=== PATIENT | female | born 1960 | race Two or more races ===

== ENCOUNTER 2025-09-21 10:34 | Inpatient (IN) | payer OTHER ==
[~2025-09-21] VITALS: Ht 152.4 cm; Wt 113.6 kg
--- NOTE | 2025-09-21 10:48 | ED.PDOC ---
HPI Comments This is a 64 year old female BOBBY presenting to the ED with chief complaint of chest pain. Patient reports that after experiencing an emotional stressor this morning about 6 hours ago, she had started to experience chest pressure with associated nausea. EMS relays patient was in A-Fib on scene, being given 500mL of fluids lowered her HR down to the 110s, but patient is still in A-Fib. Patient denies any SOB, dizziness, headache, syncope, vomiting, or abdominal pain. Time Seen by MD: 10:46 Primary Care Provider: NICOLE Conte Notes: Nurses Notes, Dock Attendant Notes, Medications, Allergies Allergies: Coded Allergies: NO KNOWN ALLERGIES (Unverified , 12/23/11) Information Source: Patient, Emergency Med Personnel Mode of Arrival: EMS Severity: Moderate Timing: Hours Duration: Since onset Prehospital treatment: IVF Quality: Pressure Onset: With Light Exertion Cardiac Risk Factors: HTN, Diabetes Past Medical History PAST MEDICAL HISTORY: AFIB, DM, HTN Surgical History: BKA (Rt) RN PEDIATRIC ICU History: Denies all RN PEDIATRIC ICU Hx Family History Family History: No family hx of DM Social History Smoker: Non-Smoker Alcohol: Denies ETOH Use Drugs: Denies Drug Use Lives In: Home Constitutional: denies: chills, diaphoresis, fatigue, fever, malaise, sweats, weakness, others EENTM: denies: blurred vision, double vision, ear bleeding, ear discharge, ear drainage, ear pain, ear ringing, eye pain, eye redness, hearing loss, mouth pain, mouth swelling, nasal discharge, nose bleeding, nose congestion, nose pain, photophobia, tearing, throat pain, throat swelling, voice changes, others Respiratory: denies: cough, hemoptysis, orthopnea, SOB at rest, shortness of breath, SOB with excertion, stridor, wheezing, others Cardiovascular: reports: chest pain; denies: dizzy spells, diaphoresis, Dyspnea on exertion, edema, irregular heart beat, left arm pain, lightheadedness, palpitations, PND, syncope, others Gastrointestinal: reports: nausea; denies: abdomen distended, abdominal pain, blood streaked bowels, constipated, diarrhea, dysphagia, difficulty swallowing, hematemesis, melena, poor appetite, poor fluid intake, rectal bleeding, rectal pain, vomiting, others Genitourinary: denies: abnormal vagina bleeding, burning, dyspareunia, dysuria, flank pain, frequency, hematuria, incontinence, pain, , vagina discharge, urgency, others Neurological: denies: dizziness, fainting, headache, left sided numbness, left sided weakness, numbness, paresthesia, pre-existing deficit, right sided numbness, right sided weakness, seizure, speech problems, tingling, tremors, weakness, others Musculoskeletal: denies: back pain, gout, joint pain, joint swelling, muscle pain, muscle stiffness, neck pain, others Integumetry: denies: bruises, change in color, change in hair/nails, dryness, laceration, lesions, lumps, rash, wounds, others Allergic/Immunocompromised: denies: Difficulty Healing, Frequent Infections, Hives, Itching, others Hematologic/Lymphatic: denies: anemia, blood clots, easy bleeding, easy bruising, swollen glands, others Endocrine: denies: excessive hunger, excessive sweating, excessive thirst, excessive urination, flushing, intolerance to cold, intolerance to heat, unexplained weight gain, unexplained weight loss, others Psychiatric: denies: anxiety, bipolar disorder, depression, hopeless, panic disorder, schizophrenia, sleepless, suicidal, others All Other Systems: Reviewed and Negative Physical Exam General Appearance: Moderate Distress, Obese HEENT: Normal ENT Inspection, Pharynx Normal, TMs Normal Neck: Full Range of Motion, Non-Tender, Normal, Normal Inspection Respiratory: Chest Non-Tender, Lungs Clear, No Accessory Muscle Use, No Respiratory Distress, Normal Breath Sounds Cardiovascular: Irregular, No Edema, No JVD, No Murmur, No Gallop, Normal Peripheral Pulses Breast Exam: Deferred Gastrointestinal: No Organomegaly, Non Tender, No Pulsatile Mass, Normal Bowel Sounds, Soft Genitalia: Deferred Pelvic: Deferred Rectal: Deferred Extremities: No calf tenderness, Normal capillary refill, Normal range of motion, Non-tender, No pedal edema, Other (Old right below-knee amputation.) Musculoskeletal : Apperance: Normal Neurologic: Alert, integration manager II-XII nml as Tested, No Motor Deficits, Normal Affect, Normal Mood, No Sensory Deficits Cerebellar Function: NOT DONE Reflexes: NOT DONE Skin: Dry, Normal Color, Warm Peripheral Pulses: 3+ Radial (R), 3+ Radial (L) Lymphatic: No Adenopathy EKG EKG : Pulse Rate (adult): 108 Cardiac Rhythm: Afib Was a procedure done? Was a procedure done?: No CP Differential Dx Differential Diagnosis: A-fib, A-Flutter, Angina, Anxiety / Panic Attack, Atrial Dysrhythmia, Electrolyte Disorder X-Ray, Labs, Meds, VS Vital Signs Date Time Temp Pulse Resp B/P (MAP) Pulse Ox O2 Delivery O2 Flow Rate FiO2 09/21/25 12:35 80 17 162/91 (114) 99 09/21/25 12:25 95 17 177/104 (128) 98 09/21/25 11:59 174/106 09/21/25 11:35 108 09/21/25 11:00 Room Air* 0 21 09/21/25 10:48 97.8 109 15 174/106 (128) 97.8 09/21/25 10:48 108 09/21/25 10:34 108 09/21/25 10:34 97.8 109 24 145/63 95 97.8 Lab Test 09/21/25 12:31 09/21/25 11:27 Range/Units Troponin I High Sensitivity Pending 14 </=34 ng/L White Blood Count 8.0 4.4-10.8 10^3/uL Red Blood Count 5.56 H 4.0-5.20 10^6/uL Hemoglobin 17.1 H 12.2-16.2 g/dL Hematocrit 50.7 H 36.0-46.0 % Mean Corpuscular Volume 91.1 80.0-100.0 fL Mean Corpuscular Hemoglobin 30.7 28.0-32.0 pg Mean Corpuscular Hemoglobin Concent 33.7 32.0-36.0 g/dL Red Cell Distribution Width 14.4 H 11.8-14.3 % Platelet Count 176 140-450 10^3/uL Mean Platelet Volume 8.6 6.9-10.8 fL Neutrophils (%) (Auto) 62.9 37.0-80.0 % Lymphocytes (%) (Auto) 28.2 10.0-50.0 % Monocytes (%) (Auto) 6.7 0.0-12.0 % Eosinophils (%) (Auto) 1.3 0.0-7.0 % Basophils (%) (Auto) 0.9 0.0-2.0 % Neutrophils # (Auto) 5.0 1.6-8.6 10 ^3/uL Lymphocytes # (Auto) 2.3 0.4-5.4 10 ^3/uL Monocytes # (Auto) 0.5 0-1.3 10 ^3/uL Eosinophils # (Auto) 0.1 0-0.8 10 ^3/uL Basophils # (Auto) 0.1 0-0.2 10 ^3/uL Nucleated Red Blood Cells 0.1 % Sodium Level 144 136-145 mmol/L Potassium Level 3.6 3.5-5.1 mmol/L Chloride Level 108 H 98-107 mmol/L Carbon Dioxide Level 23 20-31 mmol/L Anion Gap 13 5-15 Blood Urea Nitrogen 10 9-23 mg/dL Creatinine 0.75 0.550-1.02 mg/dL Glomerular Filtration Rate Calc 88 >90 mL/min BUN/Creatinine Ratio 13.3 10.0-20.0 Serum Glucose 180 H 74-106 mg/dL Calcium Level 9.1 8.7-10.4 mg/dL Current Medications Medications (Trade) Dose Ordered Sig/[place] Route Start Time Stop Time Status Last Admin Amiodarone HCl 100 ml @ 600 mls/hr ONCE ONCE IV 09/21/25 11:15 09/21/25 11:48 DC 09/21/25 11:59 Amiodarone HCl 250 ml @ 33.33 mls/ hr Q7H31M ONCE IV 09/21/25 11:30 09/21/25 19:00 09/21/25 12:20 Aspirin 325 mg ONCE ONCE PO 09/21/25 11:15 09/21/25 11:48 DC 09/21/25 11:57 Patient alert. Vitals stable. Atrial fibrillation. Blood pressure elevated. Complaining of chest pain. Was given aspirin. Saturation pristine on room air. Was given clonidine. Started amiodarone. Unstable for transfer. Explained to the patient. Continue monitoring. [place] approved inpatient admission [id number]. Time of 1ST Reevaluation: 11:45 Reevaluation 1ST: Unchanged Patient Education/Counseling: Diagnosis, Treatment Family Education/Counseling: No Family Present SEPSIS Sepsis Screen Physician Orders Electrocardigram (09/21/25 10:35) Electrocardigram (09/21/25 11:35) Electrocardigram (09/21/25 13:35) Chest Portable (09/21/25 11:13) Urinalysis (09/21/25 11:13) Amiodarone 450mg/250ml Ae (Cordarone) (09/21/25 11:30) Troponin-I Hs (09/21/25 11:34) Vital Signs Date Time Temp Pulse Resp B/P (MAP) Pulse Ox O2 Delivery O2 Flow Rate FiO2 09/21/25 12:35 80 17 162/91 (114) 99 09/21/25 12:25 95 17 177/104 (128) 98 09/21/25 11:59 174/106 09/21/25 11:35 108 09/21/25 11:00 Room Air* 0 21 09/21/25 10:48 97.8 109 15 174/106 (128) 97.8 09/21/25 10:48 108 09/21/25 10:34 108 09/21/25 10:34 97.8 109 24 145/63 95 97.8 Laboratory Tests Test 09/21/25 11:27 White Blood Count 8.0 10^3/uL (4.4-10.8) Medications Medications Dose Ordered Sig/Kanchan Route Start Time Stop Time Status Last Admin Dose Admin Amiodarone HCl 100 ml @ 600 mls/hr ONCE ONCE IV 09/21/25 11:15 09/21/25 11:48 DC 09/21/25 11:59 Amiodarone HCl 250 ml @ 33.33 mls/ hr Q7H31M ONCE IV 09/21/25 11:30 09/21/25 19:00 09/21/25 12:20 Aspirin 325 mg ONCE ONCE PO 09/21/25 11:15 09/21/25 11:48 DC 09/21/25 11:57 Departure 1 Departure Time of Disposition: 11:39 Impression: Primary Impression: Chest pain of unknown etiology Additional Impressions: Hypertensive urgency Atrial fibrillation Qualified Codes: I48.0 - Paroxysmal atrial fibrillation Disposition: ADMITTED INPATIENT Admit to: Med Surg Condition: Guarded Critical Care Note Critical Care Time?: Yes (90 min-critical care time only) Stability Stability form required: No Heart Score Heart Score: Heart Score Response (Comments) Value History Highly Suspicious 2 EKG Repolarization Disturb 1 Age >65 2 Risk Factors >3 or Hx ASHD 2 Troponin Normal limit 0 Total 7 I personally scribed for CAT TRAMMELL MD ([email or web address]) on 09/21/25 at 10:48. Electronically submitted by Taiwo Segura ([email or web address]). CAT TRAMMELL MD Sep 21, 2025 10:48
[2025-09-21 11:36] LABS: Hematocrit 50.7 % (36.0-46.0); Hemoglobin 17.1 g/dL (12.2-16.2); Mean Corpuscular Hemoglobin 30.7 pg (28.0-32.0); Mean Corpuscular Volume 91.1 fL (80.0-100.0); Nucleated Red Blood Cells % 0.1 %
[2025-09-21 11:55] LABS: Potassium 3.6 mmol/L (3.5-5.1); Sodium 144 mmol/L (136-145)
[2025-09-21 11:56] LABS: Anion Gap 13 (5-15); Carbon Dioxide 23 mmol/L (20-31)
[2025-09-21 11:57] LABS: Calcium 9.1 mg/dL (8.7-10.4); Chloride 108 mmol/L (98-107)
--- NOTE | 2025-09-21 11:57 | DVH ---
CHEST RADIOGRAPH Indication: sob Technique: Single frontal view of the chest was obtained Comparison: None FINDINGS: Lines and Tubes: None Lungs: No focal consolidation. Pleura: No effusion. No pneumothorax. Cardiomediastinal contours: Unremarkable Bones: No acute osseous abnormality. IMPRESSION: 1. No acute cardiopulmonary disease.
[2025-09-21] MEDS: AMIODARONE BOLUS KIT 100 ML IV ONE (11:59)
[2025-09-21] MEDS: NITROGLYCERIN 0.4 MG SL TAB SL ONE (11:59)
[2025-09-21 12:01] LABS: BUN/Creatinine Ratio 13.3 (10.0-20.0); Blood Urea Nitrogen 10 mg/dL (9-23)
[2025-09-21 12:02] LABS: Glucose 180 mg/dL (74-106)
[2025-09-21 14:00] VITALS: PULSE 121; RESP 12
[2025-09-21 14:11] LABS: Urine Protein, UAD Negative (Negative)
[2025-09-21] MEDS ORDERED: ATOR40TA52 PO (14:38)
[2025-09-21] MEDS ORDERED: MORPHINE SULFATE INJ 2 MG/ml SYRG IV PRN (14:45)
[2025-09-21] MEDS ORDERED: NITROGLYCERIN 0.4 MG SL TAB SL PRN ×2 (14:45)
[2025-09-21] MEDS ORDERED: DEXTROSE (50%) 50ML SYRG IV PRN (14:45)
[2025-09-21] MEDS ORDERED: MORPHINE SULFATE 4 MG/ML SYR/VIAL IV PRN (14:45)
[2025-09-21] MEDS ORDERED: ONDANSETRON HCL 4 MG/2 ML VIAL IV PRN (14:45)
--- NOTE | 2025-09-21 14:57 | DVHHP2 ---
History of Present Illness Reason for Visit: Chest pain History of Present Illness Lea Ruiz is a 64-year-old female with past medical history of AFib on Eliquis, diabetes, hypertension, hyperlipidemia, hysterectomy, and right BKA who presents to the ED with chest pain after an incident with her has been started this morning. Patient also endorses nausea. Per EMS reports patient was in AFib on scene and given 500 cc fluid bolus. Patient reports that she and her has been arguing this morning, he had told her that he wanted to become an alcoholic, she reports that she has been crying all day. Patient also reports that she uses a wheelchair to get around. Patient reports that she had been given a prescription for Keflex for 10 day supply finished her last dose yesterday from [facility] for a right lower extremity open wound on her stump. Patient reports that she was supposed to go in for a follow up today for her open wound however missed her appointment due to the incident today. Upon examination patient reports that she does not have any chest pain but just has a heavy pressure on her chest that began this morning. Patient denies any recent trauma or injury, recent sick contacts, recent ingestion of spoiled food, recent travels, fever, chills, lightheadedness, weakness, dizziness, abdominal pain, nausea, vomiting, diarrhea, or urinary symptoms. Cardiovascular: AFIB, HTN, hyperipidemia Endocrine: Diabetes Past Surgical History: Hysterectomy, Other (Right BKA) Family History: None Smoke: No ALCOHOL: none Drugs: None Lives: with Family Domestic Violence: Neg Review of Systems Cardiovascular: Chest Pain Skin: Other (right stump open wound) Allergies: Coded Allergies: NO KNOWN ALLERGIES (Unverified , 12/23/11) Exam Vital Signs Vital Signs Date Time Temp Pulse Resp B/P (MAP) Pulse Ox O2 Delivery O2 Flow Rate FiO2 09/21/25 14:00 121 12 Room Air* 0 21 09/21/25 13:30 215/119 (151) 98 09/21/25 10:48 97.8 97.8 General Appearance: Alert, Oriented X3, Cooperative, No acute distress HEENT: Atraumatic, PERRLA, EOMI, Mucous membr. moist/pink Respiratory: Clear to auscultation, Normal air movement Cardiovascular: Normal S1, Normal S2, No murmurs Abdominal: Normal bowel sounds, Soft Extremities: No clubbing, No cyanosis, Other (Right BKA with open wound) Neuro: Normal speech, Normal tone, Sensation intact Psych/Mental Status: Mental status NL, Mood NL Labs/Xrays Labs Test 09/21/25 13:50 09/21/25 12:31 09/21/25 11:27 Range/Units Urine Color Colorless Yellow Urine Clarity Clear Clear Urine pH 6.5 5.0-9.0 Urine Specific [place] 1.008 1.001-1.035 Urine Protein Negative Negative Urine Ketones 1+ H Negative Urine Blood Negative Negative /uL Urine Nitrite Negative Negative Urine Bilirubin Negative Negative Urine Urobilinogen Normal Negative mg/dL Urine Leukocyte Esterase Negative Negative /uL Urine RBC <1 0 - 4 /hpf Urine Microscopic WBC < 1 0-5 /HPF Urine Squamous Epithelial Cells Few <5 /hpf Urine Bacteria None seen None Seen /hpf Urine Glucose Normal Normal mg/dL Troponin I High Sensitivity 18 </=34 ng/L White Blood Count 8.0 4.4-10.8 10^3/uL Red Blood Count 5.56 H 4.0-5.20 10^6/uL Hemoglobin 17.1 H 12.2-16.2 g/dL Hematocrit 50.7 H 36.0-46.0 % Mean Corpuscular Volume 91.1 80.0-100.0 fL Mean Corpuscular Hemoglobin 30.7 28.0-32.0 pg Mean Corpuscular Hemoglobin Concent 33.7 32.0-36.0 g/dL Red Cell Distribution Width 14.4 H 11.8-14.3 % Platelet Count 176 140-450 10^3/uL Mean Platelet Volume 8.6 6.9-10.8 fL Neutrophils (%) (Auto) 62.9 37.0-80.0 % Lymphocytes (%) (Auto) 28.2 10.0-50.0 % Monocytes (%) (Auto) 6.7 0.0-12.0 % Eosinophils (%) (Auto) 1.3 0.0-7.0 % Basophils (%) (Auto) 0.9 0.0-2.0 % Neutrophils # (Auto) 5.0 1.6-8.6 10 ^3/uL Lymphocytes # (Auto) 2.3 0.4-5.4 10 ^3/uL Monocytes # (Auto) 0.5 0-1.3 10 ^3/uL Eosinophils # (Auto) 0.1 0-0.8 10 ^3/uL Basophils # (Auto) 0.1 0-0.2 10 ^3/uL Nucleated Red Blood Cells 0.1 % Sodium Level 144 136-145 mmol/L Potassium Level 3.6 3.5-5.1 mmol/L Chloride Level 108 H 98-107 mmol/L Carbon Dioxide Level 23 20-31 mmol/L Anion Gap 13 5-15 Blood Urea Nitrogen 10 9-23 mg/dL Creatinine 0.75 0.550-1.02 mg/dL Glomerular Filtration Rate Calc 88 >90 mL/min BUN/Creatinine Ratio 13.3 10.0-20.0 Serum Glucose 180 H 74-106 mg/dL Calcium Level 9.1 8.7-10.4 mg/dL CHEST RADIOGRAPH Indication: sob Technique: Single frontal view of the chest was obtained Comparison: None FINDINGS: Lines and Tubes: None Lungs: No focal consolidation. Pleura: No effusion. No pneumothorax. Cardiomediastinal contours: Unremarkable Bones: No acute osseous abnormality. IMPRESSION: 1. No acute cardiopulmonary disease. SEPSIS Sepsis Screen Date sepsis recognized/suspect: Sep 21, 2025 Time Sepsis recognized/suspect: 1034 Recent Procedure: No On Antibiotic Therapy: No Respiratory Rate >20: No Heart Rate >90: Yes Temp<36 C (96.8 F) or >38.3 C: No SBP <90 or MAP <65 mmHG: No New Acute Mental Status Change: No Is the patient on CPAP, BIPAP,: No Physician Orders Electrocardigram (09/21/25 10:35) Electrocardigram (09/21/25 11:35) Electrocardigram (09/21/25 13:35) Chest Portable (09/21/25 11:13) Amiodarone 450mg/250ml Ae (Cordarone) (09/21/25 11:30) Vital Signs Date Time Temp Pulse Resp B/P (MAP) Pulse Ox O2 Delivery O2 Flow Rate FiO2 09/21/25 14:00 121 12 Room Air* 0 21 09/21/25 13:30 109 13 215/119 (151) 98 09/21/25 12:35 80 17 162/91 (114) 99 09/21/25 12:25 95 17 177/104 (128) 98 09/21/25 11:59 174/106 09/21/25 11:35 108 09/21/25 11:00 Room Air* 0 21 09/21/25 10:48 97.8 109 15 174/106 (128) 97.8 09/21/25 10:48 108 09/21/25 10:34 108 09/21/25 10:34 97.8 109 24 145/63 95 97.8 Laboratory Tests Test 09/21/25 11:27 White Blood Count 8.0 10^3/uL (4.4-10.8) Medications Medications Dose Ordered Sig/Kanchan Route Start Time Stop Time Status Last Admin Dose Admin Amiodarone HCl 100 ml @ 600 mls/hr ONCE ONCE IV 09/21/25 11:15 09/21/25 11:48 DC 09/21/25 11:59 600 MLS/HR Amiodarone HCl 250 ml @ 33.33 mls/ hr Q7H31M ONCE IV 09/21/25 11:30 09/21/25 19:00 09/21/25 12:20 33.33 MLS/HR Aspirin 325 mg ONCE ONCE PO 09/21/25 11:15 09/21/25 11:48 DC 09/21/25 11:57 325 MG Assessment/Plan Assessment/Plan Assessment Chest pain rule out ACS Hypertensive urgency AFib RVR Morbid obesity History of AFib on Eliquis History of diabetes history of hypertension History of hyperlipidemia History of right BKA History of hysterectomy Plan Admit to [facility] Antiemetics Pain management EKG UA Amio drip Aspirin + statin Chest x-ray noted Troponin negative x2 UDS Hemoglobin A1c ISS and Accu-Cheks TSH Free T4 Lipid panel Echo ordered BP management Diet Home medications reconciled DVT prophylaxis-therapeutic Lovenox PUD prophylaxis-not indicated history of GERD or GI bleed Discussed plan of care with patient and nurse Cardiology consult Counseled patient on lifestyle modifications, diet, and exercise [id number] Preventive counseling healthy eating habits, physical activity, and regular checkups Chads Vasc score 4 points Plan discussed with: Patient Date of Service: Sep 21, 2025 Billing Provider: RAMON HOWARD Common Visit Codes: 98369-[id number] INP/OBS CARE (HIGH) Secondary Visit Codes: 50037-[id number] COUNSELING IND RAMON HOWARD Sep 21, 2025 14:57
[2025-09-21] MEDS: ACCU-CHEK COMFORT CURVE STRIP VI SCH (17:30)
[2025-09-21] MEDS: InsuLIN REG 1unit/0.01ml Soln (100units/ml) SC SCH (17:42)
[2025-09-21 19:20] VITALS: PULSE 121; RESP 18
--- NOTE | 2025-09-21 20:21 | DVHSR ---
APPROVED REPORT EXAM: LIMITED Two-dimensional and M-mode echocardiogram with Doppler and color Doppler. Blood Pressure: 215/119 mmHg INDICATION Chest Pain RISK FACTORS Obesity: Height: 5' 6", Weight: 250 DIMENSIONS LVDd 4.5 (3.8-5.7cm) LA (2D) 4.4 (1.9-4.0cm) Aortic Root 3.5 (2.0-3.7cm) LVDs 3.4 (2.5-4.0cm) LA (MM) (1.9-4.0cm) Aortic Cusp Exc 1.5 (1.5-2.0cm) EF (%) 50.0 (55-70%) Rt. Atrium 4.0 (1.9-4.0cm) Asc. Aorta cm IVSd 1.5 (0.7-1.1cm) RV (D) (1.8-2.4cm) PWd 1.4 (0.7-1.1cm) Mitral Valve Mitral Mitral Stenosis E wave 1.40m/s MV Mean GR. mmHg A wave 0.40m/s MV Peak GR. mmHg E/A ratio 3.5 2D MVA cm2 Aortic Valve Aortic Valve Aortic Stenosis V1 0.80m/s AO Mean GR. 8mmHg V2 2.00m/s AO Peak GR. 16mmHg LVOT Diameter 2.2 (1.8-2.4cm) Doppler JYOTI 1.52cm2 AI P 1/2 Time 472.46ms Pulmonic Valve V2 0.70m/s Tricuspid Valve TR Velocity 3.70m/s RVSP 60mmHg Conclusion Technically good study. Atrial fibrillation. Concentric LVH with left atrial enlargement. Sigmoid septum. Mild aortic sclerosis. Mild thickening and calcification of the posterior mitral leaflet. The tricuspid and pulmonic or structurally normal. Left ventricular function is preserved at 60% with normal RV function. There is however mild inferior hypokinesis. Mild mitral insufficiency. Mild aortic insufficiency. No pericardial effusion masses or vegetations.
[2025-09-21] MEDS: CLINDAMYCIN 600MG IV 50 ML IV SCH (20:46)
[2025-09-21 21:52] LABS: Amphetamine Screen, Urine Neg (NEGATIVE); Barbiturate Scree,Urine Neg (NEGATIVE); Benzodiazephine Screen, Urine Neg (NEGATIVE); Cannabinoid Screen, Urine Pos (NEGATIVE); Cocaine Screen, Urine Neg (NEGATIVE); Opiate Scree,Urine Neg (NEGATIVE); Phencyclidine Screen, Urine Neg (NEGATIVE)
[2025-09-21] MEDS ORDERED: CLINDAMYCIN 300MG IV 50 ML IV SCH (22:00)
[2025-09-21] MEDS: CARVEDILOL 3.125 MG TAB PO SCH (22:11)
[2025-09-21] MEDS: ENOXAPARIN SOD 120 MG/0.8 ML SYRINGE SC SCH (22:12)
[2025-09-21] MEDS: ATORVASTATIN 20 MG TAB PO SCH (22:12)
[2025-09-21] MEDS: TEMAZEPAM 15 MG CAP PO ONE (23:10)
[2025-09-22] VITALS (53 sets, daily range): BP systolic 127–171; BP diastolic 53–97; PULSE 70–123; RESP 10–29; TEMP 97.8–98.3; O2SAT 94–99
[2025-09-22] MEDS ORDERED: APIX5TAB PO (05:51)
[2025-09-22] MEDS ORDERED: METF-370 PO (05:51)
[2025-09-22 06:12] LABS: Hematocrit 43.7 % (36.0-46.0); Hemoglobin 15.2 g/dL (12.2-16.2); Mean Corpuscular Hemoglobin 31.5 pg (28.0-32.0); Mean Corpuscular Volume 90.8 fL (80.0-100.0); Nucleated Red Blood Cells % 0.1 %
[2025-09-22 06:24] LABS: Anion Gap 10 (5-15); Carbon Dioxide 27 mmol/L (20-31); Chloride 106 mmol/L (98-107); Potassium 3.6 mmol/L (3.5-5.1); Sodium 143 mmol/L (136-145)
[2025-09-22 06:25] LABS: Calcium 9.2 mg/dL (8.7-10.4)
[2025-09-22 06:30] LABS: BUN/Creatinine Ratio 16.7 (10.0-20.0); Blood Urea Nitrogen 14 mg/dL (9-23); Magnesium 1.9 mg/dL (1.6-2.6)
[2025-09-22 06:32] LABS: Cholesterol 200 mg/dL (< 200)
[2025-09-22 06:34] LABS: Glucose 126 mg/dL (74-106); HDL Cholesterol 39 mg/dL (40-59); Triglycerides 166 mg/dL (< 150)
--- NOTE | 2025-09-22 10:59 | DVHINCON2 ---
Date Seen: Sep 22, 2025 Referring Physician LUCAS Vargas Reason for Consultation AFib with RVR History of Present Illness This is a 64-year-old female patient who presents to the emergency room with chief complaint of shortness of breath, palpitations, and chest tightness. Prior to symptoms, the patient reports that her called her and told her that he would rather be a drunk than to her. This upset the patient causing her to experience extreme shortness of breath, chest tightness, and palpitations. She reports that the chest tightness was precipitated by the conversation with her , her chest was tight in nature, left-sided and nonradiating. She reports that chest tightness was constant which prompted her to call EMS. Upon EMS arrival, the patient was found to be in atrial fibrillation with rapid ventricular response and was brought to the emergency room for further evaluation. Initial twelve lead electrocardiogram done in the emergency room reveals atrial fibrillation without any significant ST segment changes. Initial troponin level of 14ng/L this is flat trend thereafter. Significant past medical history includes atrial fibrillation (on Eliquis), failed direct current cardioversion in July 2024, history myocardial infarction, hypertension, dyslipidemia, type 2 diabetes mellitus, CVA x2 without residual deficit, and morbid obesity. The patient does not follow up with a arbitrator in the outpatient setting. Past Medical History Past medical history reviewed. No other significant than mentioned above. Past Surgical History Right [id number] amputation (2023) Total hysterectomy Family History: Patient reports no known family medical history. Family History Family history reviewed. Social History Denies the use of tobacco, alcohol or illicit drugs. Allergies: Coded Allergies: NO KNOWN ALLERGIES (Unverified , 12/23/11) Home Meds Reported Medications Apixaban Base (ELIQUIS) 5 Mg Tab, 1 TAB PO BID 09/22/25 Metformin Hydrochloride (Metformin Hcl) 500 Mg Tab, 1 TAB PO BID 09/22/25 Atorvastatin Calcium (ATORVASTATIN CALCIUM) 40 Mg Tab, 1 TAB PO DAILY 09/21/25 Home Meds Home medications reviewed. Current Medications Current Medications Medications (Trade) Dose Ordered Sig/[place] Route PRN Reason Start Time Stop Time Status Last Admin Atorvastatin Calcium (Lipitor) 40 mg HS PO 09/21/25 22:00 09/21/25 22:12 Diagnostic Test (Pha) (Accu-Chek Comfort Curve T) 1 strip ACHS 09/21/25 17:00 09/22/25 06:48 Insulin Human Regular (InsuLIN R) ACHS SC 09/21/25 17:00 09/22/25 06:48 Dextrose 50 ml UD PRN IV Blood Sugar LESS THAN 60 09/21/25 14:45 Aspirin 81 mg DAILY PO 09/22/25 10:00 09/22/25 10:48 Morphine Sulfate 2 mg Q30MP PRN IV FOR CHEST PAIN 09/21/25 14:45 Acetaminophen (Tylenol Tablet) 650 mg Q6HP PRN PO MILD PAIN (1-3 PAIN SCALE) 09/21/25 14:45 Nitroglycerin (Ntrostat Sublingual) 0.4 mg Q5MINP PRN SL FOR CHEST PAIN 09/21/25 14:45 Ondansetron HCl (Zofran) 4 mg Q4HP PRN IV NAUSEA / VOMITING 09/21/25 14:45 Nitroglycerin (Ntrostat Sublingual) 0.4 mg Q5MINP PRN SL FOR CHEST PAIN 09/21/25 14:45 09/21/25 15:00 DC Morphine Sulfate 2 mg Q30M PRN IV FOR CHEST PAIN 09/21/25 14:45 09/21/25 15:00 DC Enoxaparin Sodium (Lovenox) 110 mg Q12HR SC 09/21/25 22:00 09/22/25 10:48 Carvedilol (Coreg Tablet) 3.125 mg Q12HR PO 09/21/25 22:00 09/22/25 10:49 Clindamycin Phosphate 50 ml @ 50 mls/hr Q8HR IV 09/21/25 22:00 09/21/25 17:24 DC Clindamycin Phosphate 50 ml @ 50 mls/hr Q8HR IV 09/21/25 17:00 09/22/25 06:27 Review of Systems Constitutional: No symptom reported Ears, Nose, & Throat: No symptom reported Eyes: No symptom reported Neurological: No symptoms reported Pulmonary/Respiratory: Shortness of breath Cardiovascular: Palpitations, chest pain Gastrointestinal: No symptom reported Genitourinary: No symptom reported Musculoskeletal: No symptom reported Skin: No symptom reported Psychiatric: No symptom reported Endocrine: No symptom reported Hematologic/Lymphatic: No symptom reported Vital Signs Vital Signs Date Time Temp Pulse Resp B/P (MAP) Pulse Ox O2 Delivery O2 Flow Rate FiO2 09/22/25 10:49 91 154/79 09/22/25 08:00 17 94 Room Air* 0 21 09/22/25 05:05 97.8 97.8 Physical Exam General Appearance: Cooperative. Morbidly obese Pulmonary/Respiratory: Clear, bilateral breaths sounds. Cardiovascular/Chest: Irregularly irregular rate and rhythm Peripheral Pulses: 2+ Radial (R). 2+ Radial (L). Abdominal Exam: Normal bowel sounds. Lower extremities: Negative lower extremity edema Neuro/Mental Status: A/OX4, coherent. Thoughts/Psych: Normal thought pattern. Appropriate mood and affect. Good judgment and insight. Appearance: No acute distress. Skin Exam: Normal inspection. Normal color. Warm and dry. Right [id number] amputation noted Labs/Diagnostic Data Labs Test 09/22/25 06:25 09/22/25 05:47 09/21/25 17:12 09/21/25 13:50 Range/Units POC Glucose 140 H 70-106 mg/dl White Blood Count 6.9 4.4-10.8 10^3/uL Red Blood Count 4.81 4.0-5.20 10^6/uL Hemoglobin 15.2 12.2-16.2 g/dL Hematocrit 43.7 # 36.0-46.0 % Mean Corpuscular Volume 90.8 80.0-100.0 fL Mean Corpuscular Hemoglobin 31.5 28.0-32.0 pg Mean Corpuscular Hemoglobin Concent 34.7 32.0-36.0 g/dL Red Cell Distribution Width 14.2 11.8-14.3 % Platelet Count 168 140-450 10^3/uL Mean Platelet Volume 8.9 6.9-10.8 fL Neutrophils (%) (Auto) 45.4 37.0-80.0 % Lymphocytes (%) (Auto) 42.9 10.0-50.0 % Monocytes (%) (Auto) 8.1 0.0-12.0 % Eosinophils (%) (Auto) 2.8 0.0-7.0 % Basophils (%) (Auto) 0.8 0.0-2.0 % Neutrophils # (Auto) 3.1 1.6-8.6 10 ^3/uL Lymphocytes # (Auto) 2.9 0.4-5.4 10 ^3/uL Monocytes # (Auto) 0.6 0-1.3 10 ^3/uL Eosinophils # (Auto) 0.2 0-0.8 10 ^3/uL Basophils # (Auto) 0.1 0-0.2 10 ^3/uL Nucleated Red Blood Cells 0.1 % Sodium Level 143 136-145 mmol/L Potassium Level 3.6 3.5-5.1 mmol/L Chloride Level 106 98-107 mmol/L Carbon Dioxide Level 27 20-31 mmol/L Anion Gap 10 5-15 Blood Urea Nitrogen 14 9-23 mg/dL Creatinine 0.84 0.550-1.02 mg/dL Glomerular Filtration Rate Calc 77 >90 mL/min BUN/Creatinine Ratio 16.7 10.0-20.0 Serum Glucose 126 H 74-106 mg/dL Calcium Level 9.2 8.7-10.4 mg/dL Magnesium Level 1.9 1.6-2.6 mg/dL Troponin I High Sensitivity 20 </=34 ng/L Triglycerides Level 166 H < 150 mg/dL Cholesterol Level 200 H < 200 mg/dL LDL Cholesterol 136 H < 100 mg/dL HDL Cholesterol 39 L 40-59 mg/dL Lactic Acid Level 1.5 0.4-2.0 mmol/L C-Reactive Protein High Sensitivity 0.06 <1.0 mg/dL Urine Color Colorless Yellow Urine Clarity Clear Clear Urine pH 6.5 5.0-9.0 Urine Specific [place] 1.008 1.001-1.035 Urine Protein Negative Negative Urine Ketones 1+ H Negative Urine Blood Negative Negative /uL Urine Nitrite Negative Negative Urine Bilirubin Negative Negative Urine Urobilinogen Normal Negative mg/dL Urine Leukocyte Esterase Negative Negative /uL Urine RBC <1 0 - 4 /hpf Urine Microscopic WBC < 1 0-5 /HPF Urine Squamous Epithelial Cells Few <5 /hpf Urine Bacteria None seen None Seen /hpf Urine Glucose Normal Normal mg/dL Urine Opiates Screen Neg NEGATIVE Urine Fentanyl Screen Neg NEGATIVE Urine Barbiturates Screen Neg NEGATIVE Urine Phencyclidine Screen Neg NEGATIVE Urine Amphetamines Screen Neg NEGATIVE Urine Benzodiazepines Screen Neg NEGATIVE Urine Cocaine Screen Neg NEGATIVE Urine Cannabinoids Screen Pos NEGATIVE Test 09/21/25 12:31 09/21/25 11:27 Range/Units Thyroid Stimulating Hormone (TSH) 2.07 0.55-4.78 uIU/mL Free Thyroxine (T4) Calculated 1.22 0.89-1.76 ng/dL Hemoglobin A1c 7.1 H <5.7 % A1C Assessment Atrial fibrillation with rapid ventricular response (on Eliquis) History of failed direct current cardioversion Hypertension Dyslipidemia Type 2 diabetes mellitus History of CVA x2 Morbid obesity Plan/Recommendation We will continue with the following plan/recommendations (Dr. Muhammad): * Transthoracic echocardiogram reveals an EF of 60% with mild inferior hypokinesis per report * [id number] VASc score: 6 points, HAS-BLED score: 2 points * Therapeutic Lovenox while inpatient, transition to full dose DOAC (Eliquis) prior to discharge * Beta-teto for rate control * Avoid antiarrhythmic agent given atrial fibrillation likely persistent * Monitor and replete electrolytes as needed, keep potassium greater than four magnesium greater than two * Close cardiac surveillance Patient seen and examined at bedside with . Transthoracic echocardiogram reviewed by . Regional wall motion abnormality possibly related to underlying arrhythmia, we will recommend outpatient ischemic workup. At the time of assessment, the patient remains in atrial fibrillation with controlled rate. Atrial fibrillation likely longstanding persistent as patient mentions failed direct current cardioversion last year. Continue with medical management. There is no further inpatient cardiac workup indicated at this time. The patient has been educated to follow up with a arbitrator within the [facility] post discharge. The patient verbalized understanding. Thank you for allowing us to care for this patient. Please call with any questions or conc erns. Critical care time spent: 44 minutes This medical document was created using an electronic medical record system with voice recognition software and computerized dictation system. Although this document has been carefully reviewed, there might still be some phonetic and typographical errors. Occasional wrong-word or ``sound-alike substitutions may have occurred due to the inherent limitations of voice recognition software. These areas are purely typographical due to imperfections of the software programs and do not reflect any compromise in the patient's medical care. Please read the chart carefully and recognize, using context, where these substitutions have occurred. Plan discussed with: Patient NYHA Physical activity limitations: NA Date of Service: Sep 22, 2025 Billing Provider: JANIYA PHILIP Cardiology Common Codes: 29420-ACFCJDI INP/OBS CARE (High) Cardiology Consultation Codes: [id number] CONSULT <45MIN JANIYA PHILIP Sep 22, 2025 10:59
[2025-09-22] MEDS: CARVEDILOL 3.125 MG TAB PO ONE (13:15)
[2025-09-22] MEDS: ACETAMINOPHEN 325 MG TAB PO PRN (14:32)
--- NOTE | 2025-09-22 15:54 | DVHINCON2 ---
Date of service: Sep 22, 2025 History of Present Illness AFib with RVR History of Present Illness History of Present Illness This is a 64-year-old female patient who presents to the emergency room with chief complaint of shortness of breath, palpitations, and chest tightness. Prior to symptoms, the patient reports that her called her and told her that he would rather be a drunk than to her. This upset the patient causing her to experience extreme shortness of breath, chest tightness, and palpitations. She reports that the chest tightness was precipitated by the conversation with her , her chest was tight in nature, left-sided and nonradiating. She reports that chest tightness was constant which prompted her to call EMS. Upon EMS arrival, the patient was found to be in atrial fibrillation with rapid ventricular response and was brought to the emergency room for further evaluation. Initial twelve lead electrocardiogram done in the emergency room reveals atrial fibrillation without any significant ST segment changes. Initial troponin level of 14ng/L this is flat trend thereafter. Significant past medical history includes atrial fibrillation (on Eliquis), failed direct current cardioversion in July 2024, history myocardial infarction, hypertension, dyslipidemia, type 2 diabetes mellitus, CVA x2 without residual deficit, and morbid obesity. The patient does not follow up with a soil technician in the outpatient setting. Past Medical History Past Medical History Past medical history reviewed. No other significant than mentioned above. Past Surgical History Past Surgical History Right [id number] amputation (2023) Total hysterectomy Family & Social History Family History: Patient reports no known family medical history. Family History Family history reviewed. Social History Denies the use of tobacco, alcohol or illicit drugs. Allergies and Medications Allergies: Coded Allergies: NO KNOWN ALLERGIES (Unverified , 12/23/11) Home Meds Reported Medications Apixaban Base (ELIQUIS) 5 Mg Tab, 1 TAB PO BID 09/22/25 Metformin Hydrochloride (Metformin Hcl) 500 Mg Tab, 1 TAB PO BID 09/22/25 Atorvastatin Calcium (ATORVASTATIN CALCIUM) 40 Mg Tab, 1 TAB PO DAILY 09/21/25 Home Meds Home medications reviewed. Current Medications Current Medications Medications (Trade) Dose Ordered Sig/[place] Route PRN Reason Start Time Stop Time Status Last Admin Atorvastatin Calcium (Lipitor) 40 mg HS PO 09/21/25 22:00 09/21/25 22:12 Diagnostic Test (Pha) (Accu-Chek Comfort Curve T) 1 strip ACHS 09/21/25 17:00 09/22/25 06:48 Insulin Human Regular (InsuLIN R) ACHS SC 09/21/25 17:00 09/22/25 06:48 Dextrose 50 ml UD PRN IV Blood Sugar LESS THAN 60 09/21/25 14:45 Aspirin 81 mg DAILY PO 09/22/25 10:00 09/22/25 10:48 Morphine Sulfate 2 mg Q30MP PRN IV FOR CHEST PAIN 09/21/25 14:45 Acetaminophen (Tylenol Tablet) 650 mg Q6HP PRN PO MILD PAIN (1-3 PAIN SCALE) 09/21/25 14:45 Nitroglycerin (Ntrostat Sublingual) 0.4 mg Q5MINP PRN SL FOR CHEST PAIN 09/21/25 14:45 Ondansetron HCl (Zofran) 4 mg Q4HP PRN IV NAUSEA / VOMITING 09/21/25 14:45 Nitroglycerin (Ntrostat Sublingual) 0.4 mg Q5MINP PRN SL FOR CHEST PAIN 09/21/25 14:45 09/21/25 15:00 DC Morphine Sulfate 2 mg Q30M PRN IV FOR CHEST PAIN 09/21/25 14:45 09/21/25 15:00 DC Enoxaparin Sodium (Lovenox) 110 mg Q12HR SC 09/21/25 22:00 09/22/25 10:48 Carvedilol (Coreg Tablet) 3.125 mg Q12HR PO 09/21/25 22:00 09/22/25 10:49 Clindamycin Phosphate 50 ml @ 50 mls/hr Q8HR IV 09/21/25 22:00 09/21/25 17:24 DC Clindamycin Phosphate 50 ml @ 50 mls/hr Q8HR IV 09/21/25 17:00 09/22/25 06:27 Review of Systems Review of Systems Constitutional: No symptom reported Ears, Nose, & Throat: No symptom reported Eyes: No symptom reported Neurological: No symptoms reported Pulmonary/Respiratory: Shortness of breath Cardiovascular: Palpitations, chest pain Gastrointestinal: No symptom reported Genitourinary: No symptom reported Musculoskeletal: No symptom reported Skin: No symptom reported Psychiatric: No symptom reported Endocrine: No symptom reported Hematologic/Lymphatic: No symptom reported Exam Vital Signs Vital Signs Date Time Temp Pulse Resp B/P (MAP) Pulse Ox O2 Delivery O2 Flow Rate FiO2 09/22/25 10:49 91 154/79 09/22/25 08:00 17 94 Room Air* 0 21 09/22/25 05:05 97.8 97.8 Physical Exam General Appearance: Cooperative. Morbidly obese Pulmonary/Respiratory: Clear, bilateral breaths sounds. Cardiovascular/Chest: Irregularly irregular rate and rhythm Peripheral Pulses: 2+ Radial (R). 2+ Radial (L). Abdominal Exam: Normal bowel sounds. Lower extremities: Negative lower extremity edema Neuro/Mental Status: A/OX4, coherent. Thoughts/Psych: Normal thought pattern. Appropriate mood and affect. Good judgment and insight. Appearance: No acute distress. Skin Exam: Normal inspection. Normal color. Warm and dry. Right [id number]-[id number] amputation noted Labs/Diagnostic Data Labs/Diagnostic Data Labs Test 09/22/25 06:25 09/22/25 05:47 09/21/25 17:12 09/21/25 13:50 Range/Units POC Glucose 140 H 70-106 mg/dl White Blood Count 6.9 4.4-10.8 10^3/uL Red Blood Count 4.81 4.0-5.20 10^6/uL Hemoglobin 15.2 12.2-16.2 g/dL Hematocrit 43.7 # 36.0-46.0 % Mean Corpuscular Volume 90.8 80.0-100.0 fL Mean Corpuscular Hemoglobin 31.5 28.0-32.0 pg Mean Corpuscular Hemoglobin Concent 34.7 32.0-36.0 g/dL Red Cell Distribution Width 14.2 11.8-14.3 % Platelet Count 168 140-450 10^3/uL Mean Platelet Volume 8.9 6.9-10.8 fL Neutrophils (%) (Auto) 45.4 37.0-80.0 % Lymphocytes (%) (Auto) 42.9 10.0-50.0 % Monocytes (%) (Auto) 8.1 0.0-12.0 % Eosinophils (%) (Auto) 2.8 0.0-7.0 % Basophils (%) (Auto) 0.8 0.0-2.0 % Neutrophils # (Auto) 3.1 1.6-8.6 10 ^3/uL Lymphocytes # (Auto) 2.9 0.4-5.4 10 ^3/uL Monocytes # (Auto) 0.6 0-1.3 10 ^3/uL Eosinophils # (Auto) 0.2 0-0.8 10 ^3/uL Basophils # (Auto) 0.1 0-0.2 10 ^3/uL Nucleated Red Blood Cells 0.1 % Sodium Level 143 136-145 mmol/L Potassium Level 3.6 3.5-5.1 mmol/L Chloride Level 106 98-107 mmol/L Carbon Dioxide Level 27 20-31 mmol/L Anion Gap 10 5-15 Blood Urea Nitrogen 14 9-23 mg/dL Creatinine 0.84 0.550-1.02 mg/dL Glomerular Filtration Rate Calc 77 >90 mL/min BUN/Creatinine Ratio 16.7 10.0-20.0 Serum Glucose 126 H 74-106 mg/dL Calcium Level 9.2 8.7-10.4 mg/dL Magnesium Level 1.9 1.6-2.6 mg/dL Troponin I High Sensitivity 20 </=34 ng/L Triglycerides Level 166 H < 150 mg/dL Cholesterol Level 200 H < 200 mg/dL LDL Cholesterol 136 H < 100 mg/dL HDL Cholesterol 39 L 40-59 mg/dL Lactic Acid Level 1.5 0.4-2.0 mmol/L C-Reactive Protein High Sensitivity 0.06 <1.0 mg/dL Urine Color Colorless Yellow Urine Clarity Clear Clear Urine pH 6.5 5.0-9.[address] 1.008 1.001-1.035 Urine Protein Negative Negative Urine Ketones 1+ H Negative Urine Blood Negative Negative /uL Urine Nitrite Negative Negative Urine Bilirubin Negative Negative Urine Urobilinogen Normal Negative mg/dL Urine Leukocyte Esterase Negative Negative /uL Urine RBC <1 0 - 4 /hpf Urine Microscopic WBC < 1 0-5 /HPF Urine Squamous Epithelial Cells Few <5 /hpf Urine Bacteria None seen None Seen /hpf Urine Glucose Normal Normal mg/dL Urine Opiates Screen Neg NEGATIVE Urine Fentanyl Screen Neg NEGATIVE Urine Barbiturates Screen Neg NEGATIVE Urine Phencyclidine Screen Neg NEGATIVE Urine Amphetamines Screen Neg NEGATIVE Urine Benzodiazepines Screen Neg NEGATIVE Urine Cocaine Screen Neg NEGATIVE Urine Cannabinoids Screen Pos NEGATIVE Test 09/21/25 12:31 09/21/25 11:27 Range/Units Thyroid Stimulating Hormone (TSH) 2.07 0.55-4.78 uIU/mL Free Thyroxine (T4) Calculated 1.22 0.89-1.76 ng/dL Hemoglobin A1c 7.1 H <5.7 % A1C Assessment/Plan Assessment Atrial fibrillation with rapid ventricular response (on Eliquis) History of failed direct current cardioversion Hypertension Dyslipidemia Type 2 diabetes mellitus History of CVA x2 Morbid obesity Plan/Recommendation We will continue with the following plan/recommendations (Dr. Dowd): Family History: Patient reports no known family medical history. Allergies: Coded Allergies: NO KNOWN ALLERGIES (Unverified , 12/23/11) Home Meds Reported Medications Apixaban Base (ELIQUIS) 5 Mg Tab, 1 TAB PO BID 09/22/25 Metformin Hydrochloride (Metformin Hcl) 500 Mg Tab, 1 TAB PO BID 09/22/25 Atorvastatin Calcium (ATORVASTATIN CALCIUM) 40 Mg Tab, 1 TAB PO DAILY 09/21/25 Current Medications Current Medications Medications (Trade) Dose Ordered Sig/[place] Route PRN Reason Start Time Stop Time Status Last Admin Atorvastatin Calcium (Lipitor) 40 mg HS PO 09/21/25 22:00 09/21/25 22:12 Diagnostic Test (Pha) (Accu-Chek Comfort Curve T) 1 strip ACHS 09/21/25 17:00 09/22/25 11:35 Insulin Human Regular (InsuLIN R) ACHS SC 09/21/25 17:00 09/22/25 11:35 Aspirin 81 mg DAILY PO 09/22/25 10:00 09/22/25 10:48 Enoxaparin Sodium (Lovenox) 110 mg Q12HR SC 09/21/25 22:00 09/22/25 10:48 Carvedilol (Coreg Tablet) 3.125 mg Q12HR PO 09/21/25 22:00 09/22/25 13:09 DC 09/22/25 10:49 Clindamycin Phosphate 50 ml @ 50 mls/hr Q8HR IV 09/21/25 22:00 09/21/25 17:24 DC Clindamycin Phosphate 50 ml @ 50 mls/hr Q8HR IV 09/21/25 17:00 09/22/25 13:32 Carvedilol (Coreg Tablet) 6.25 mg Q12HR PO 09/22/25 22:00 Vital Signs Vital Signs Date Time Temp Pulse Resp B/P (MAP) Pulse Ox O2 Delivery O2 Flow Rate FiO2 09/22/25 13:15 77 139/71 09/22/25 08:00 17 94 Room Air* 0 21 09/22/25 05:05 97.8 97.8 Labs/Diagnostic Data Labs Test 09/22/25 11:06 09/22/25 05:47 09/21/25 17:12 09/21/25 13:50 Range/Units POC Glucose 220 H 70-106 mg/dl White Blood Count 6.9 4.4-10.8 10^3/uL Red Blood Count 4.81 4.0-5.20 10^6/uL Hemoglobin 15.2 12.2-16.2 g/dL Hematocrit 43.7 # 36.0-46.0 % Mean Corpuscular Volume 90.8 80.0-100.0 fL Mean Corpuscular Hemoglobin 31.5 28.0-32.0 pg Mean Corpuscular Hemoglobin Concent 34.7 32.0-36.0 g/dL Red Cell Distribution Width 14.2 11.8-14.3 % Platelet Count 168 140-450 10^3/uL Mean Platelet Volume 8.9 6.9-10.8 fL Neutrophils (%) (Auto) 45.4 37.0-80.0 % Lymphocytes (%) (Auto) 42.9 10.0-50.0 % Monocytes (%) (Auto) 8.1 0.0-12.0 % Eosinophils (%) (Auto) 2.8 0.0-7.0 % Basophils (%) (Auto) 0.8 0.0-2.0 % Neutrophils # (Auto) 3.1 1.6-8.6 10 ^3/uL Lymphocytes # (Auto) 2.9 0.4-5.4 10 ^3/uL Monocytes # (Auto) 0.6 0-1.3 10 ^3/uL Eosinophils # (Auto) 0.2 0-0.8 10 ^3/uL Basophils # (Auto) 0.1 0-0.2 10 ^3/uL Nucleated Red Blood Cells 0.1 % Sodium Level 143 136-145 mmol/L Potassium Level 3.6 3.5-5.1 mmol/L Chloride Level 106 98-107 mmol/L Carbon Dioxide Level 27 20-31 mmol/L Anion Gap 10 5-15 Blood Urea Nitrogen 14 9-23 mg/dL Creatinine 0.84 0.550-1.02 mg/dL Glomerular Filtration Rate Calc 77 >90 mL/min BUN/Creatinine Ratio 16.7 10.0-20.0 Serum Glucose 126 H 74-106 mg/dL Calcium Level 9.2 8.7-10.4 mg/dL Magnesium Level 1.9 1.6-2.6 mg/dL Troponin I High Sensitivity 20 </=34 ng/L Triglycerides Level 166 H < 150 mg/dL Cholesterol Level 200 H < 200 mg/dL LDL Cholesterol 136 H < 100 mg/dL HDL Cholesterol 39 L 40-59 mg/dL Lactic Acid Level 1.5 0.4-2.0 mmol/L C-Reactive Protein High Sensitivity 0.06 <1.0 mg/dL Urine Color Colorless Yellow Urine Clarity Clear Clear Urine pH 6.5 5.0-9.[address] 1.008 1.001-1.035 Urine Protein Negative Negative Urine Ketones 1+ H Negative Urine Blood Negative Negative /uL Urine Nitrite Negative Negative Urine Bilirubin Negative Negative Urine Urobilinogen Normal Negative mg/dL Urine Leukocyte Esterase Negative Negative /uL Urine RBC <1 0 - 4 /hpf Urine Microscopic WBC < 1 0-5 /HPF Urine Squamous Epithelial Cells Few <5 /hpf Urine Bacteria None seen None Seen /hpf Urine Glucose Normal Normal mg/dL Urine Opiates Screen Neg NEGATIVE Urine Fentanyl Screen Neg NEGATIVE Urine Barbiturates Screen Neg NEGATIVE Urine Phencyclidine Screen Neg NEGATIVE Urine Amphetamines Screen Neg NEGATIVE Urine Benzodiazepines Screen Neg NEGATIVE Urine Cocaine Screen Neg NEGATIVE Urine Cannabinoids Screen Pos NEGATIVE Test 09/21/25 12:31 09/21/25 11:27 Range/Units Thyroid Stimulating Hormone (TSH) 2.07 0.55-4.78 uIU/mL Free Thyroxine (T4) Calculated 1.22 0.89-1.76 ng/dL Hemoglobin A1c 7.1 H <5.7 % A1C Microbiology Date/Time Source Procedure Growth Status 09/22/25 05:00 Nose MRSA Screen - Final Complete Plan/Recommendation chronic afib---uptitrate BB on a lose now , placed on current doac dosing, outpt fu echo images reviewed, WMA seen with dysrhthmia , outpt fu , acs ruled out Plan discussed with: Patient SOLITARIO DOWD MD Sep 22, 2025 15:54
[2025-09-22] MEDS ORDERED: CARV6.2517 PO (15:59)
--- NOTE | 2025-09-22 16:05 | DVHDS2 ---
Discharge Summary Date of Admission Sep 21, 2025 at 14:39 Date of Discharge: Sep 22, 2025 Labs/Diagnostic Data: Laboratory Results Test 09/22/25 11:06 09/22/25 05:47 09/21/25 17:12 09/21/25 13:50 POC Glucose 220 mg/dl (70-106) White Blood Count 6.9 10^3/uL (4.4-10.8) Red Blood Count 4.81 10^6/uL (4.0-5.20) Hemoglobin 15.2 g/dL (12.2-16.2) Hematocrit 43.7 % (36.0-46.0) Mean Corpuscular Volume 90.8 fL (80.0-100.0) Mean Corpuscular Hemoglobin 31.5 pg (28.0-32.0) Mean Corpuscular Hemoglobin Concent 34.7 g/dL (32.0-36.0) Red Cell Distribution Width 14.2 % (11.8-14.3) Platelet Count 168 10^3/uL (140-450) Mean Platelet Volume 8.9 fL (6.9-10.8) Neutrophils (%) (Auto) 45.4 % (37.0-80.0) Lymphocytes (%) (Auto) 42.9 % (10.0-50.0) Monocytes (%) (Auto) 8.1 % (0.0-12.0) Eosinophils (%) (Auto) 2.8 % (0.0-7.0) Basophils (%) (Auto) 0.8 % (0.0-2.0) Neutrophils # (Auto) 3.1 10 ^3/uL (1.6-8.6) Lymphocytes # (Auto) 2.9 10 ^3/uL (0.4-5.4) Monocytes # (Auto) 0.6 10 ^3/uL (0-1.3) Eosinophils # (Auto) 0.2 10 ^3/uL (0-0.8) Basophils # (Auto) 0.1 10 ^3/uL (0-0.2) Nucleated Red Blood Cells 0.1 % Sodium Level 143 mmol/L (136-145) Potassium Level 3.6 mmol/L (3.5-5.1) Chloride Level 106 mmol/L (98-107) Carbon Dioxide Level 27 mmol/L (20-31) Anion Gap 10 (5-15) Blood Urea Nitrogen 14 mg/dL (9-23) Creatinine 0.84 mg/dL (0.550-1.02) Glomerular Filtration Rate Calc 77 mL/min (>90) BUN/Creatinine Ratio 16.7 (10.0-20.0) Serum Glucose 126 mg/dL (74-106) Calcium Level 9.2 mg/dL (8.7-10.4) Magnesium Level 1.9 mg/dL (1.6-2.6) Troponin I High Sensitivity 20 ng/L (</=34) Triglycerides Level 166 mg/dL (< 150) Cholesterol Level 200 mg/dL (< 200) LDL Cholesterol 136 mg/dL (< 100) HDL Cholesterol 39 mg/dL (40-59) Lactic Acid Level 1.5 mmol/L (0.4-2.0) C-Reactive Protein High Sensitivity 0.06 mg/dL (<1.0) Urine Color Colorless (Yellow) Urine Clarity Clear (Clear) Urine pH 6.5 (5.0-9.0) Urine Specific [place] 1.008 (1.001-1.035) Urine Protein Negative (Negative) Urine Ketones 1+ (Negative) Urine Blood Negative /uL (Negative) Urine Nitrite Negative (Negative) Urine Bilirubin Negative (Negative) Urine Urobilinogen Normal mg/dL (Negative) Urine Leukocyte Esterase Negative /uL (Negative) Urine RBC <1 /hpf (0 - 4) Urine Microscopic WBC < 1 /HPF (0-5) Urine Squamous Epithelial Cells Few /hpf (<5) Urine Bacteria None seen /hpf (None Seen) Urine Glucose Normal mg/dL (Normal) Urine Opiates Screen Neg (NEGATIVE) Urine Fentanyl Screen Neg (NEGATIVE) Urine Barbiturates Screen Neg (NEGATIVE) Urine Phencyclidine Screen Neg (NEGATIVE) Urine Amphetamines Screen Neg (NEGATIVE) Urine Benzodiazepines Screen Neg (NEGATIVE) Urine Cocaine Screen Neg (NEGATIVE) Urine Cannabinoids Screen Pos (NEGATIVE) Test 09/21/25 12:31 09/21/25 11:27 Thyroid Stimulating Hormone (TSH) 2.07 uIU/mL (0.55-4.78) Free Thyroxine (T4) Calculated 1.22 ng/dL (0.89-1.76) Hemoglobin A1c 7.1 % A1C (<5.7) Other Laboratory Tests 09/22/25 05:47 Brief Hx & Hospital Course: 64-year-old female with a known history of hypertension, dyslipidemia, diabetes mellitus type 2, previous history of CVA x2, chronic AFib with a failed direct current cardioversion in the past currently on Eliquis and metformin presented to the hospital with a shortness a breath palpitation after she had an argument with the . Patient was found to have AFib with a RVR. Patient is currently off of amiodarone drip. Patient will be started on beta teto she is already on Eliquis. Patient is being discharged under stable condition. 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 Patient was recommended to return to ER if there is any worsening wound fevers chills or any concern. Condition at Discharge: Stable Final Diagnosis/Problems List Atrial fibrillation with rapid ventricular response (on Eliquis), currently rate controlled History of failed direct current cardioversion Hypertension Dyslipidemia Type 2 diabetes mellitus History of CVA x2 Morbid obesity Discharge Disposition: Home SNF Discharge Will this Physician continue t: No Discharge Instruct/Medications Diet: Cardiac 2g Na,low cholest Diet comment: 1800 ADA diet Activity: No Restrictions, As Tolerated Follow Up/Referral: Please follow up with the PCP in one week Follow up with the Cardiology in one week Follow up with the Orthopedics at [place] in less than a week for the right open stump wound. Medications: Carvedilol as prescribed. New Medications: Carvedilol (Coreg) 6.25 Mg Tab 1 TAB PO BID, #60 TAB 5 Refills Continued Medications: Apixaban Base (Eliquis) 5 Mg Tab 1 TAB PO BID Atorvastatin Calcium (Atorvastatin Calcium) 40 Mg Tab 1 TAB PO DAILY Metformin Hydrochloride (Metformin Hcl) 500 Mg Tab 1 TAB PO BID Scheduled Apixaban Base (Eliquis), 1 TAB PO BID, (Reported) Atorvastatin Calcium (Atorvastatin Calcium), 1 TAB PO DAILY, (Reported) Carvedilol (Coreg), 1 TAB PO BID Metformin Hydrochloride (Metformin Hcl), 1 TAB PO BID, (Reported) Discharge Statement: "Patient was advised to return to the ER or call 911 if any headaches, dizziness, shortness of breath, chest pain, abdominal pain, bleeding, fevers, or worsening of medical condition. Patient was counseled about treatment plan, medications, possible side effects, patientverbalized understanding. All questions were answered to the best of my ability. This discharge took greater then 30 minutes in planning, reviewing documentation, counseling the patient, and discussing with other team members." ASSESSMENT ASSESSMENT Assessment Atrial fibrillation with rapid ventricular response (on Eliquis), currently rate controlled History of failed direct current cardioversion Hypertension Dyslipidemia Type 2 diabetes mellitus History of CVA x2 Morbid obesity Date of Service: Sep 22, 2025 Billing Provider: MARJ ROME MD Common Visit Codes: 15448-GSP/OBS DISCH DAY >30min MARJ ROME MD Sep 22, 2025 16:05
[2025-09-22] MEDS ORDERED: CARVEDILOL 3.125 MG TAB PO SCH (22:00)
--- NOTE | 2025-09-24 11:01 | ECG ---
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
--- NOTE | 2025-09-26 07:09 | ECG ---
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
--- NOTE | 2025-09-26 07:09 | ECG ---
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
== END 2025-09-22 18:50 | disposition home or self-care (01) | DRG 305 ==
LOC: ER 10:34 → EDBD 10:34 → OVERFLOW 14:39 → ICU CENTRL 09-22 04:24
DX: I16.0 Hypertensive urgency (principal); E11.9 Type 2 diabetes mellitus without complications; Z79.01 Long term (current) use of anticoagulants; Z68.42 Body mass index [BMI] 45.0-49.9, adult; I10 Essential (primary) hypertension; I48.91 Unspecified atrial fibrillation; E66.01 Morbid (severe) obesity due to excess calories; E78.5 Hyperlipidemia, unspecified; Z86.73 Personal history of transient ischemic attack (TIA), and cerebral infarction without residual deficits; Z90.710 Acquired absence of both cervix and uterus; Z89.511 Acquired absence of right leg below knee; I25.2 Old myocardial infarction; Z79.899 Other long term (current) drug therapy
CPT/HCPCS: 36415; 71045; 80048; 80061; 80307; 81001; 82962; 83036; 83605; 83735; 84439; 84443; 84484; 85025; 86141; 87040; 87077; 87081; 87186; 87205; 93005; 93306; 96365; 96366; 99291; 99292; G0378; J1815; J3490